=== PATIENT | male | born 1950 | race Caucasian/White ===

== ENCOUNTER → 2025-08-01 12:43 | Outpatient (CLI) | payer MEDICARE, OTHER, SELFPAY ==
--- NOTE | 2025-08-01 12:48 | EKG_ITS ---
[facility] [address] [address] Test Date: 2025-08-01 Pat Name: Gael Nieves Department: [facility] Room: Gender: Male Applications Intern: : 1950 Requested By: Order Number: [id number] Reading MD: Dez Whitaker Measurements Intervals [place] Rate: 53 P: 42 NM: 174 QRS: 20 QRSD: 102 T: 45 QT: 426 QTc: 399 Interpretive Statements Sinus bradycardia Electronically Signed On 08-05-2025 16:23:01 PDT by Dez Whitaker
[2025-08-01 13:58] LABS: Add Manual Diff / Slide Review NO; Hematocrit 43.6 % (41-53); Hemoglobin 14.7 g/dL (13.5-17.5); Lymphocytes Absolute Auto 2000 /uL (1100-4500); Mean Corpuscular HGB Conc 33.6 % (30-36); Mean Corpuscular Hemoglobin 32.0 PG (26-34); Mean Corpuscular Volume 95.1 fL (80-100); Platelet Count 298 X10^3/uL (150-400)
[2025-08-01 14:06] LABS: Hemoglobin A1C% w Est Avg Glu 5.9 % (4.0-6.0)
[2025-08-01 14:27] LABS: Albumin 4.6 g/dL (3.5-5.0); Blood Urea Nitrogen 21 mg/dL (9-20); Calcium 9.6 mg/dL (8.4-10.2); Carbon Dioxide 26 mmol/L (22-32); Chloride 103 mmol/L (98-107); Estimated Glomerular Filt Rate > 60 mL/min (>60); Glucose 107 mg/dL (70-99); HEMOLYSIS < 15 (0-50); Potassium 4.9 mmol/L (3.4-5.1); Sodium 140 mmol/L (137-145)
[2025-08-01 14:35] LABS: Prealbumin 35.9 mg/dL (17.6-36.0)
[2025-08-01 16:19] LABS: Vitamin D 25 Hydroxy (D3) 30.8 ng/mL (30.0-100.0)
== END ==
PROVIDERS: PCP Family Medicine; Referring Provider Orthopaedic Surgery Adult Reconstructive Orthopaedic Surgery; Visit Provider Orthopaedic Surgery Adult Reconstructive Orthopaedic Surgery
DX: Z01.818 Encounter for other preprocedural examination (principal); E55.9 Vitamin D deficiency, unspecified; R73.09 Other abnormal glucose
CPT/HCPCS: 36415; 80048; 82040; 82306; 83036; 84134; 85025; 93005

== ENCOUNTER 2025-11-14 08:00 | Inpatient (IN) | payer MEDICARE, OTHER, SELFPAY ==
[2025-11-06 08:37] VITALS: BMI 29.5
--- NOTE | 2025-11-14 | DI.CT.S_ITS ---
PROCEDURE: CT ANGIO CHEST PE PROTOCOL INDICATIONS: CODE IN OR TECHNIQUE: After the administration of intravenous contrast, 2 mm thick sections acquired from the pulmonary apices to the posterior costophrenic angles. 3-dimensional maximum intensity projection (MIP) coronal and sagittal reformats were then acquired through the thorax. For radiation dose reduction, the following was used: automated exposure control, adjustment of mA and/or kV according to patient size. COMPARISON: None. FINDINGS: Quality: Diagnostic. Vasculature: Aorta: No aneurysm. Pulmonary arteries: Occlusive thrombus to the right lower lobe posterior segment. Lungs: Parenchyma: Extensive centrilobular emphysematous change. Compressive atelectasis in the bilateral lower lobes. Airways: Endotracheal tube in the trachea. Focal mucous nonocclusive in the right mainstem bronchus. Pleura: No pneumothorax. No pleural effusion. Mediastinum: Thyroid: Unremarkable. Esophagus: Unremarkable. Heart: Bowing of the intraventricular septum and increased RV LV ratio. Reflux of contrast into the hepatic veins. Air is also present right atrium. Air within the right internal mammary and right IJ. Moderate coronary calcification Lymph nodes: No adenopathy. Other: Chest wall: Unremarkable. Upper abdomen: Indeterminate hypoattenuating liver lesions.. Bones: No aggressive osseous lesion. Nondisplaced fractures of the right to 3 full or 5 ribs and the left [id number] ribs. IMPRESSION: Occlusive pulmonary embolism to the right lower lobe posterior segment. Right heart strain. Small volume of air within the right atrium and right internal jugular vein. Most likely etiology during injection. Nonocclusive mucous within the airways. Compressive atelectasis. Bilateral anterior rib fractures. Indeterminate liver lesions. Further evaluation with MRI in the nonacute setting recommended. Dictated by: Jake Escamilla M.D. on 11/14/2025 at 13:22 Approved by: Jake Escamilla M.D. on 11/14/2025 at 13:39
--- OUTSIDE RECORDS SUMMARY | 2025-11-14 08:04 | XMS_ITS | Encounter Summary ---
Author Organization [facility] Address [address] [place] [id number] Care Team Providers Care Assistant Press Operator Offset Name Role Phone Belinda Maldonado MD Primary Care Provider [phone] Roger Meléndez MD Primary Care Provider [phone] Encounter Details Date Type Department Care Team (Late st Contact Info) Description 09/15/2023 Documentation [facility] Scanned, Document Social History Tobacco Use Types Packs/Day Years Used Date Smoking Tobacco: Never Assessed Sex and Gender Information Value Date Recorded Sex Assigned at Male 05/04/2024 12:28 PM PDT Legal Sex Male 11:49 AM PST Gender Identity Male 05/04/2024 12:28 PM PDT Sexual Orientation Straight 05/04/2024 12 :28 PM PDT documented as of this encounter Plan of Treatment Upcoming Encounters Date Type Department Care Team (Late st Contact Info) Description 12/12/2025 11:40 AM PST Follow-Up CARDIOLOGY - [place], [place] - [facility] [address] [id number] German Moore MD [address] [place] [phone] documented as of this encounter Visit Diagnoses Not on filedocumented in this encounter Care Teams Assistant Press Operator Offset Relationship Specialty Start Date End Date Belinda Maldonado MD PCP - General Family Medicine 05/08/16 05/13/24 Roger Meléndez MD [address] [address] PCP - General Family Medicine 05/14/24 documented as of this encounter
[2025-11-14] MEDS: LACTATED RINGERS 1,000 ML 42 ML IV (08:24)
[2025-11-14] MEDS: MELOXICAM 7.5 MG TABLET 15 MG PO (08:26)
[2025-11-14] MEDS: GABAPENTIN 300 MG CAPSULE PO (08:27)
[2025-11-14] MEDS: ACETAMINOPHEN 325 MG TABLET 975 MG PO (08:27)
[2025-11-14 08:59] VITALS: BP 130/80; PULSE 68; RESP 16; TEMP 36.2; O2SAT 97
--- NOTE | 2025-11-14 09:50 | PM.PREOP ---
Pre-operative Note Interval Note History & Physical reviewed/Exam performed by Physician: Yes Changes to H&P: No
--- NOTE | 2025-11-14 11:22 | SUR.OPER ---
Supine on padded [place] table with bilateral legs secured in padded positioning boots and suspended in positioning spars, operative leg in traction per surgeon. Head on one pillow. bilateral Arm secured on padded armboard <90 degrees abduction. Padded perineal post in place per surgeon.
[2025-11-14] MEDS: KETOROLAC 30 MG/ML VIAL 15 MG INJ (11:39)
--- NOTE | 2025-11-14 12:46 | DI.RAD.S_ITS ---
PROCEDURE: XR CHEST 1V INDICATIONS: CODE BLUE TECHNIQUE: One view of the chest was acquired. COMPARISON: [facility], CT, CT ANGIO CHEST PE PROTOCOL, 11/14/2025, 12:48. FINDINGS: Shallow inspiration. Bibasilar atelectasis. Upper lobe consolidation. No pneumothorax. Endotracheal tube approximately 3 cm from the bart. Cardiac silhouette partially visible. Possible left 5 in 6 anterior rib fractures. IMPRESSION: Consolidation concerning for pulmonary edema or pneumonia. Possible rib fractures. Dictated by: Jake Escamilla M.D. on 11/14/2025 at 13:03 Approved by: Jake Escamilla M.D. on 11/14/2025 at 13:05
[2025-11-14 13:01] LABS: Hematocrit 25.1 % (41-53); Hemoglobin 8.6 g/dL (13.5-17.5); Mean Corpuscular HGB Conc 34.2 % (30-36); Mean Corpuscular Hemoglobin 33.3 PG (26-34); Mean Corpuscular Volume 97.4 fL (80-100)
[2025-11-14 13:02] LABS: Add Manual Diff / Slide Review YES
--- NOTE | 2025-11-14 13:08 | EKG_ITS ---
[address] [address] Test Date: 2025-11-14 Pat Name: Gael Nieves Department: Room: E Gender: Male Flight Surveyor: : 1950 Requested By: Order Number: [id number] Reading MD: Measurements Intervals [place] Rate: 56 P: -88 HI: 168 QRS: 74 QRSD: 150 T: 0 QT: 380 QTc: 366 Interpretive Statements Unusual P axis, possible ectopic atrial bradycardia with undetermined rhythm irregularity Right bundle branch block
[2025-11-14 13:21] LABS: Allen Test for ABG Passed? Positive; Blood Gas Collection Site Left Radial; HCO3 ABG 20 mmol/L (23-27); Oxygen Saturation ABG 77 % (95-100); PCO2 ABG 60.1 mmHg (35-45); PO2 ABG 56 mmHg (80-100); TCO2 ABG 19 mmol/L (23-27)
[2025-11-14 13:23] LABS: Band Neutrophils Percent 2.0 % (3-7); Eosinophils Percent Manual 1.0 % (2-4); Lymphocytes Percent Manual 48.0 % (25-45); Monocytes Percent Manual 1.0 % (2-11); Myelocytes Percent 2.0 % (-0); Neutrophils Absolute Manual 4416 /uL (3000-5900); RBC Morphology Normal Morphology; Segmented Neutrophils Percent 46.0 % (38-70); Total Cells Counted 100
--- NOTE | 2025-11-14 14:02 | RT ---
Responded to a code blue to the OR. Upon arrival patient was receiving CPR and was intubated. After several rounds of CPR patient was transferred to get a CT secondary for possible PE. Patient was transferred on 15lpm BVM by SILK EXAMINER. After CT pt received an EKG and by RT and ABG was done by anesthesia on R femoral artery. ABG showed that the patient was very acidotick with a ph of 7.11. and daughter arrived in CT and made the decision to stop life saving procedures after MD thoroughly laid out what the situation was. Patient was extubated and a 3L oxymask was put on.
--- NOTE | 2025-11-14 14:19 | PM.OP.1 ---
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 He saw me in clinic for ongoing right hip pain and we discussed conversion to a total hip arthroplasty. Prior to proceeding with surgery he received both cardiac and primary care clearance. His cardiac clearance noted his history of cardiovascular disease but felt that he was low risk and his primary care clearance also commented on his cardiac history but felt that it should not impact any surgical plans. This patient was seen preoperatively and evaluated for hip pain which was refractory to numerous nonoperative treatment modalities. Their hip pain correlated with radiographic changes demonstrating significant degeneration in the hip joint. The risks and benefits of continued nonoperative management versus operative management were discussed at length and all of the patient?s questions were answered. Additional educational materials providing further details beyond our discussion in clinic were provided via a publicly available patient education video which included the incidence of medical complications associated with total hip arthroplasty, reasons for revision following total hip arthroplasty, and patient satisfaction rates following total hip arthroplasty. With this understanding of the risks inherent to the procedure, the patient elected to move forward with operative management. Following preoperative optimization, the patient was scheduled for surgery. The patient was met in the preoperative holding area the day of the procedure and all questions were answered. The patient?s nares were swabbed in order to decolonize them from MRSA. Informed consent was signed and the right limb was marked with indelible ink.? The patient was brought back to the operating room where anesthesia was induced. The patient was transferred to the [place] table and all bony prominences were padded. The operative site was prepped and draped in the usual sterile fashion. Prior to incision, tranexamic acid and cefazolin were administered. Operative templating images were displayed demonstrating the anticipated implant sizes and correct operative extremity. A timeout procedure was performed verifying the patient?s identity, medical comorbidities, allergies, relevant medications, anesthesia type and the surgical plan. All present were in agreement. The assistance of a physician information services assistant was required for positioning, room setup, soft tissue retraction and wound closure. Without this assistance, the procedure would have been significantly more challenging and time consuming.?? I initially made an approach down to the old DHS plate. I utilized the prior incision and excised the old scar and then dissected through the IT band and retracted the vastus lateralis anteriorly. I identified the plate and removed all of the distal screws. The most distal screw broke during removal with the head coming disconnected from the screw shaft. I removed the plate by sliding a Bruce underneath the plate after burring some of the overgrown bone around the chamber proximally where the proximal blade screw went through. The plate was removed over the proximal bolt and the proximal bolt was then removed. This exposed the most distal screw which had broken. I trephined over it and then removed the remainder of the screw using a broken screw removal tool. The very tip of the screw remained in place but I felt that this would not impact later broaching so I did not make further attempts to retrieve it A direct anterior approach to the hip was utilized. This was performed with a longitudinal incision through a Heuter interval. The incision was planned 2 cm distal and 2 cm lateral to the ASIS extending towards the lateral patella, in line with the muscle body of the TFL. Following incision, the subcutaneous tissue was dissected while taking care to avoid injury to the lateral femoral cutaneous nerve. The fascia overlying the TFL was identified by dissecting off the overlying fat and identifying perforating vessels to the TFL. The TFL fascia was incised and dissected away from the medial border of the TFL. A retractor was placed over the superior femoral neck between the abductors and the hip capsule and used to reflect the TFL laterally. A Barrow self-retainer was then placed in the distal aspect of the wound between the TFL and the rectus femoris. This was tensioned to open up the direct anterior interval and the lateral circumflex vessels were identified and coagulated using electrocautery. The floor of the TFL fascia was incised, exposing the pericapsular fat overlying the hip capsule. A second cobra retractor was placed on the inferior femoral neck. A retractor was placed on the anterior wall of the acetabulum and used to tension the reflected head of rectus femoris, which was then released in order to limit soft tissue tension. A capsulotomy was made in the midline of the anterior hip capsule in line with the femoral neck ending at the vastus tubercle. The anterior retractor was removed as soon as the capsulotomy was completed in order to limit the amount of time that a soft tissue retractor remained on the anterior wall and limit tension on the femoral nerve. Tag stitches were placed in the superior and inferior leaflets of the hip capsule. An Bobby soft tissue retractor was introduced over the tag stitches and tensioned in the interval between the rectus femoris and the TFL in order to retract and protect those muscles. The cobra retractors were replaced intracapsularly, with one over the superior neck in the pocket created by the base of the greater trochanter and the other on the femoral head. The capsulotomy was extended laterally to the base of the greater trochanter and medially to the lesser trochanter. This required externally rotating the hip. Once the lesser trochanter had been identified, a neck cut was planned according to measurements from preoperative templating. A ruler was cut at the length measured between the superior aspect of the lesser trochanter and the collar of the prosthesis. This line was extended towards the inferior aspect of the lateral cobra retractor to plan a cut which would leave minimal residual femoral neck laterally. The neck was cut at 60 degrees of external rotation along that line. A second cut was performed to remove a large napkin ring and facilitate head extraction. The napkin ring cut and femoral head were removed.?? A broad anterior wall retractor was placed between the labrum and the anterior capsule so that the anterior capsule would prevent capturing and pinching the femoral nerve anteriorly. An additional retractor was placed on the posterior wall. External rotation and traction were applied through the [place] table so that the cut surface of the femoral neck would not restrict access to the acetabulum. The labrum was excised sharply and the pulvinar was excised with electrocautery to limit bleeding from branches of the obturator artery. Acetabular reamers were selected based on preoperative templating and measurements of the excised femoral head. These were introduced into the acetabulum. Fluoroscopy was utilized to replicate a standing AP pelvis radiograph by centering over the pelvis, rotating until there was appropriate symmetry between the obturator foramen, and introducing caudal tilt to match the position of the pubic symphysis relative to the sacrococcygeal junction according to the patient?s anatomy. Once satisfied with the reaming depth corresponding to the preoperative template and the pinch fit between the columns, an appropriate sized acetabular cup was selected which would provide 1 mm of press-fit. This cup was introduced and manipulated until appropriate abduction and anteversion angles were obtained with careful attention to appropriate abduction and anteversion angles as evaluated by the position of the cup relative to the anterior and posterior escobar of the acetabulum and the AP fluoroscopy which recreated the patient?s standing radiograph. The cup was impacted into place. Peripheral osteophytes were removed. The acetabular liner was then placed with care to ensure locking of the locking mechanism. It was at this point in time that the anesthesia team alerted me to the patient's decompensation. I whip stitched the wound closed with a nylon suture. I applied a bandage. Resuscitation efforts began simultaneously with this expedited closure. The resuscitation efforts, eventual code, and subsequent of the patient are documented elsewhere in the chart from the other team members who were involved in managing the code. During this process I communicated multiple times with the family regarding updates, brought them to the bedside in the CT scanner where he passed and have stayed with them as they begin the grieving process. Complications: other () Post-operative Condition:
--- NOTE | 2025-11-14 14:21 | SUR.OPER ---
code blue was called at approximately 1203 incision was closed at approximately 1207 for end of case. See code documentation for information on code. See out of room time for time to transport to CT.
--- NOTE | 2025-11-14 14:26 | P.CONS_ITS ---
History of Present Illness Consult details Date Patient Seen: 11/14/25 Chief complaint: INPTRight conversion of prior surgery to Total Hip Narrative: This is a 75-year-old male with a history of CAD, GERD, COPD, hypertension, hyperlipidemia, atrial fibrillation and normocytic anemia who experienced a cardiac arrest during right hip replacement revision surgery. Orthopedic surgery and anesthesia requested hospitalist consultation. His preoperative clearance letter is reviewed. His cardiac evaluation mentioned 1 of the smaller arteries having significant stenosis but no further intervention or treatment was recommended. He had no history of DVT or PE. His surgery today was a planned elective cemented right total hip arthroplasty with removal of prior dynamic hip screw. At between 1 and 2 hours into surgery, at a point somewhat past the planned mid point of the surgery he went into cardiac arrest. Ultimately at the end of an hour plus long team resuscitation effort a CT scan documented a right lower lung pulmonary embolus as the likely cause of the initially noted dropping end-tidal CO2 and the subsequent cardiac arrest. See the very careful documentation of the code sequence by anesthesia. In the OR the patient received IV amiodarone, several doses of IV epinephrine, several rounds of CPR, bedside ultrasound of the lungs and heart looking for pneumothorax/cardiac motion. Chest x-ray documenting no pneumothorax was also done. Close coordination and consultation with the ED physician, the anesthesia physician and nurse senior project accountant and the orthopedic surgeon. EKG showed junctional rhythm without acute ST or T-wave changes. CPR was high quality and together with epinephrine brought return of spontaneous circulation several times before deteriorating back into bradycardia and pulseless electrical activity. Once the patient was initially stabilized he was taken to the CT scanner where the PE diagnosis was ultimately made. He went back into cardiac arrest and became epinephrine dependent, dropping back into pulseless electrical activity repeatedly, eventually needing frequent IV epinephrine and atropine to avoid return to bradycardia/PE. He was closely attended by respiratory therapy, pharmacy, MACHINE FEEDER and OR MD/MOVIE OPERATOR staff at all times. An ABG was done documenting a pH of 7.11. Family were invited into the room to observe the progression of the code and after discussion of potential outcomes including severe rib fracture pain, diminished mental capabilities and likely severe physical debility even if ongoing efforts were successful, his and his daughter agreed that he would not have wanted the outcome that was now most likely evident based on the acidosis and continued struggled to maintain spontaneous circulation. He was made comfort care and resuscitative efforts were stopped at their request. Radiology described a right lower lung pulmonary embolus with air in the right atrium (likely related to multiple resuscitative medication injections etc.) on his CTA. Exam: Patient was examined multiple times during the resuscitation effort by myself and other medical attending staff. Assessment and plan: Intraoperative cardiac arrest secondary to spontaneous right lower lobe pulmonary embolism. Extensive efforts at resuscitation with several episodes of return to spontaneous circulation and then return back to pulseless electrical activity. Anticoagulation and clot lysis were considered with relative contraindications of very recent surgery and likely blood loss in the operative site if that were done. Ultimately with the acidosis present and the repeated arrests family opted to honor his wishes of not prolonging his life without the quality of live that he wished to have. This prevented what would have been a very hard decision of clot lysis/anticoagulation in the context of expected operative site bleeding. Meds Home Medications and Allergies Home Medications ?Medication ?Instructions ?Recorded ?Confirmed ?Type rosuvastatin 10 mg tablet 10 mg PO DAILY 08/01/2510/28 History cholecalciferol (vitamin D3) 50 100 mcg (2 x 50 mcg (2 ,000 unit)) 08/02/25 11/14/25 Rx mcg (2,000 unit) capsule PO DAILY low vitamin d #60 c aps chlorhexidine gluconate 4 % 1 applic topical DAILY 5 d oses 10/30/25 11/06/25 Rx topical liquid (Hibiclens) #473 mL docusate sodium 100 mg capsule 100 mg PO BID constipat ion #14 caps 10/30/25 11/06/25 Rx (Colace) meloxicam 15 mg tablet 15 mg PO DAILY PRN pain #30 tabs 10/30/25 11/14/25 Rx metoprolol succinate 25 mg 12.5 mg PO DAILY 10/30/25 1 01/15/25 History tablet,extended release 24 hr naproxen 500 mg tablet 220 mg PO BID PRN Pain 10/3011/14/25 History Held on 10/30/25. Instructions: Pre-surgery ondansetron 4 mg disintegrating 4 mg PO Q8H PRN nausea and 10/30/25 11/06/25 Rx tablet vomiting #12 tabs pantoprazole 40 mg tablet,delayed 40 mg PO DAILY #30 t abs 10/30/25 11/14/25 Rx release Held on 11/14/25. Instructions: for after surgery cefadroxil 500 mg capsule 500 mg PO BID 11/06/2511/14 History Held on 11/14/25. Instructions: not taking yet oxycodone 5 mg tablet 5 mg PO Q6H PRN pain #30 tab s 11/06/25 11/14/25 Rx Held on 11/14/25. Instructions: for post surgery aspirin 81 mg tablet 81 mg PO DAILY 11/14/2510/28 History Allergies Allergy/AdvReac Type Severity Reaction Status Date / Time No Known Drug Allergies Allergy Verified 11/14/25 08:51 Exam Vital Signs (past 8 hours): - 11/14/25 08:59 Temperature 97.2 F L Pulse Rate 68 Respiratory Rate 16 Blood Pressure 130/80 Pulse Oximetry 97 Oxygen Delivery Method Room Air Oxygen Delivery Method Room Air Objective Labs 11/14/25 Unknown Labs: Laboratory Results - last 24 hr 11/14/25 11/14/25 11/14/25 08:45 10:51 12:26 WBC RBC Hgb Hct MCV MCH MCHC RDW Plt Count Neut % (Auto) Lymph % (Auto) [place] % (Auto) Eos % (Auto) Baso % (Auto) Lymph # (Auto) [place] # (Auto) Baso # (Auto) Total Counted Seg Neutrophils % Band Neutrophils % Lymphocytes % (Manual) Atypical Lymphs % Monocytes % (Manual) Eosinophils % (Manual) Basophils % (Manual) Metamyelocytes % Myelocytes % Promyelocytes % Blast Cells % Neutrophils # (Manual) Nucleated RBCs Differential Comment Hypersegmented Neuts Reactive Lymphocytes Plasma Cells Smudge Cells Other Cell Type Toxic Granulation Toxic Vacuolation Dohle Bodies Raffy Rods WBC Morphology Comment Platelet Estimate Clumped Platelets Plt Morphology Comment RBC Morphology Dimorphic RBCs Polychromasia Hypochromasia Poikilocytosis Basophilic Stippling Anisocytosis Microcytosis Macrocytosis Spherocytes Pappenheimer Bodies Sickle Cells Target Cells Tear Drop Cells Ovalocytes Stomatocytes Helmet Cells [place] Bodies [place] Rings [place] Cells Acanthocytes (Spur) Rouleaux Schistocytes ABG Sample Site ABG pH ABG pCO2 ABG pO2 ABG HCO3 ABG Total CO2 ABG O2 Saturation ABG Base Excess Dez Test Sodium Potassium Chloride Carbon Dioxide BUN Creatinine Estimated GFR BUN/Creatinine Ratio Glucose POC Whole Bld Glucose 98 149 H Calcium Total Bilirubin AST ALT Alkaline Phosphatase Troponin I Total Protein Albumin Globulin Albumin/Globulin Ratio Blood Type B Negative Antibody Screen Negative 11/14/25 11/14/25 13:17 Unknown WBC 9.2 RBC 2.58 L Hgb 8.6 L Hct 25.1 L MCV 97.4 MCH 33.3 MCHC 34.2 RDW 13.2 Plt Count TNP Neut % (Auto) Not Reportable Lymph % (Auto) Not Reportable [place] % (Auto) Not Reportable Eos % (Auto) Not Reportable Baso % (Auto) Not Reportable Lymph # (Auto) Not Reportable [place] # (Auto) Not Reportable Baso # (Auto) Not Reportable Total Counted 100 Seg Neutrophils % 46.0 Band Neutrophils % 2.0 L Lymphocytes % (Manual) 48.0 H Atypical Lymphs % Cancelled Monocytes % (Manual) 1.0 L Eosinophils % (Manual) 1.0 L Basophils % (Manual) Cancelled Metamyelocytes % Cancelled Myelocytes % 2.0 H Promyelocytes % Cancelled Blast Cells % Cancelled Neutrophils # (Manual) 4416 Nucleated RBCs Cancelled Differential Comment Cancelled Hypersegmented Neuts Cancelled Reactive Lymphocytes Cancelled Plasma Cells Cancelled Smudge Cells Cancelled Other Cell Type Cancelled Toxic Granulation Cancelled Toxic Vacuolation Cancelled Dohle Bodies Cancelled Raffy Rods Cancelled WBC Morphology Comment Cancelled Platelet Estimate Cancelled Clumped Platelets Cancelled Plt Morphology Comment Cancelled RBC Morphology Normal morphology Dimorphic RBCs Cancelled Polychromasia Cancelled Hypochromasia Cancelled Poikilocytosis Cancelled Basophilic Stippling Cancelled Anisocytosis Cancelled Microcytosis Cancelled Macrocytosis Cancelled Spherocytes Cancelled Pappenheimer Bodies Cancelled Sickle Cells Cancelled Target Cells Cancelled Tear Drop Cells Cancelled Ovalocytes Cancelled Stomatocytes Cancelled Helmet Cells Cancelled [place] Bodies Cancelled [place] Rings Cancelled Sera Cells Cancelled Acanthocytes (Spur) Cancelled Rouleaux Cancelled Schistocytes Cancelled ABG Sample Site Left radial ABG pH 7.12 L* ABG pCO2 60.1 H ABG pO2 56 L ABG HCO3 20 L ABG Total CO2 19 L ABG O2 Saturation 77 L* ABG Base Excess -10.0 L Dez Test Positive Sodium Cancelled Potassium Cancelled Chloride Cancelled Carbon Dioxide Cancelled BUN Cancelled Creatinine Cancelled Estimated GFR Cancelled BUN/Creatinine Ratio Cancelled Glucose Cancelled POC Whole Bld Glucose Calcium Cancelled Total Bilirubin Cancelled AST Cancelled ALT Cancelled Alkaline Phosphatase Cancelled Troponin I Cancelled Total Protein Cancelled Albumin Cancelled Globulin Cancelled Albumin/Globulin Ratio Cancelled Blood Type Antibody Screen [facility] Medical History (Updated 11/06/25 @ 10:23 by Lili Day RN) GERD (gastroesophageal reflux disease) COPD (chronic obstructive pulmonary disease) SCC (squamous cell carcinoma), face Emphysema lung HLD (hyperlipidemia) HTN (hypertension) Orthostatic lightheadedness CAD (coronary artery disease) Normocytic anemia History of sepsis (04/2024) History of compression fracture of vertebral column History of atrial fibrillation (04/2024) Traumatic arthritis of right hip Surgical History (Updated 11/06/25 @ 09:38 by Lili Day RN) History of cardiac catheterization Hx of foot surgery Hx of hernia repair History of open reduction and internal fixation (ORIF) procedure (10/16/15) Tobacco & Substance Use Smoking Status: Former smoker Assessment & Plan Time-Based Coding :: [TOTAL MINUTES] spent with patient and on the chart (including review of chart, obtaining history, exam, reviewing outside data, placing orders, documenting exam and treatment plan, and counseling patient) on [DATE].
--- NOTE | 2025-11-14 15:24 | P.EN_ITS ---
Event Note Date Patient Seen: 11/14/25 Time Patient Seen: 11:53 Event Note (Rapid Response, Code, or fall): Below details intra operative event: * 1150: BP unable to cycle HR 58, SpO2 98%, EtCo to 29 (prior 35 at 1147). * 1151: Hr 57, EtCo2 23, SpO2 98% * 1152: Hr 52, EtCo2 19, SpO2 91% * 1153: Hr 53, Etco2 21, SpO2 89% - FiO2 increased to 100%, connections to ventilator assessed, tube assessed * 1154: ST elevation noted on EKG, BP 61/34, EtCo2 21, Spo2 88% - ventilator switched to manual mode and patient manually ventilated. no increased resistance noted, Vt remained approx 500mL. 10mg Ephedrine given * 1155: EtCo2 17, HR 55, SpO2 84% * 1157: EtCo2 10, HR 48, SpO2 78%, attempting to cycle BP, 5mg ephedrine given. Carotid pulse assessed and present. Patient remained in NSR on monitor. * 1158: Called for second anesthesia provider, Celina Mckeon CRNA. EtCo2 10, HR 53, SpO2 69% * 1200: Second anesthesia provider arrived. Ashen color noted, LR bag changed. Sevo off. Right carotid pulse rechecked and thready. Vaso 1unit given. Surgeon notified and asked surgeon for wound closure. 0.5mg EPI given. * 1201: called for additional anesthesia back up, additional OR personnel back up. * 1203: Code called - PEA arrest, remaining 0.5mg Epi given. Patient put back on VCV at 100% FiO2. CPR started. Vitals with compressions: BP 110/76 SpO2 88%, EtCo2 10. * 1204: Additional OR/anesthesia MD back up arrives. Code team. Designated 2 compressors, backboard placed and pacing pads placed on patient. * 1205: Official code blue flowsheet started x RN. Pulse check - no pulse noted and CPR resumed. * 1207: Pulse check - PEA arrest. Compressions resumed. * 1210: pulse check: No pulse - PEA continued. Compression resumed. 1mg Epi given. * 1212: pulse check: thready carotid pulse noted. 2 units of vaso, 0.5 mg Epi. Unsuccessful PIV line placement attempt. Hr 179, SpO2 79%, EtCo2 23. * 1214: Bp 182/88 * 1215: Vtach noted on monitor - Resumed CPR. Norepi bag started, phenylephrine gtt DC'd. * 1216: Defibrilator charged, shock delivered @150 j. * 1217: CPR resumed. category consultant arrived, SBAR to category consultant and ER MD. * 1219: Rhythm check - sinus tachycardia with no ST elevation. 1 amp bicarb given. ROSC BP 123/53, SpO2 78%. HR 102, EtCo2 33. * 1222: Lost a pulse - 1 amp of Epi given - resumed CPR * 1223: 300mg amiodarone given * 1224: CPR paused for pulse check and rhythm assessment. beside cardiac ultrasound - regular ventricular activity present. * 1225: Bp 166/81 * 1226: blood glucose 149, NSR on EKG * 1228: femoral pulse continually being assessed by hospitalist. BP 115/78 HR 72 EtCo2 27 * 1229: attempting labs, attempting arterial line and PIV - 20g L forearm attained. 1L LR started on new IV. * 1230: 1000mg calcium chloride given. BP 122/74 HR 71 EtCo2 33, SpO2 90%. * 1231: Epi gtt started * 1233: blood sent to lab * 1235: Pulse lost, CPR restarted. * 1237: carotid and femoral pulse present. * 1238: NSR with PACs. * 1240: Chest xray obtained. and preparing patient for transport to CT. * 1247: Transport to CT. Emergent meds available for transport. patient on full transport monitors. BMV ventilation on 100%. * 1248:Hr 60, Spo2 92%, BP 92/53 - Epi and NE gtt continued. 1 unit vaso given prior to transport. * 1249: Out of OR to CT * In CT new code initiated. CT obtained after ROSC. Family invited to bedside with ultimate decision to pursue comfort measures.
--- NOTE | 2025-11-14 15:24 | PM.EVENT ---
Event Note Date Patient Seen: 11/14/25 Time Patient Seen: 11:53 Event Note (Rapid Response, Code, or fall): Below details intra operative event: 1150: BP unable to cycle HR 58, SpO2 98%, EtCo to 29 (prior 35 at 1147). 1151: Hr 57, EtCo2 23, SpO2 98% 1152: Hr 52, EtCo2 19, SpO2 91% 1153: Hr 53, Etco2 21, SpO2 89% - FiO2 increased to 100%, connections to ventilator assessed, tube assessed 1154: ST elevation noted on EKG, BP 61/34, EtCo2 21, Spo2 88% - ventilator switched to manual mode and patient manually ventilated. no increased resistance noted, Vt remained approx 500mL. 10mg Ephedrine given 1155: EtCo2 17, HR 55, SpO2 84% 1157: EtCo2 10, HR 48, SpO2 78%, attempting to cycle BP, 5mg ephedrine given. Carotid pulse assessed and present. Patient remained in NSR on monitor. 1158: Called for second anesthesia provider, Celina Mckeon CRNA. EtCo2 10, HR 53, SpO2 69% 1200: Second anesthesia provider arrived. Ashen color noted, LR bag changed. Sevo off. Right carotid pulse rechecked and thready. Vaso 1unit given. Surgeon notified and asked surgeon for wound closure. 0.5mg EPI given. 1201: called for additional anesthesia back up, additional OR personnel back up. 1203: Code called - PEA arrest, remaining 0.5mg Epi given. Patient put back on VCV at 100% FiO2. CPR started. Vitals with compressions: BP 110/76 SpO2 88%, EtCo2 10. 1204: Additional OR/anesthesia MD back up arrives. Code team. Designated 2 compressors, backboard placed and pacing pads placed on patient. 1205: Official code blue flowsheet started x RN. Pulse check - no pulse noted and CPR resumed. 1207: Pulse check - PEA arrest. Compressions resumed. 1210: pulse check: No pulse - PEA continued. Compression resumed. 1mg Epi given. 1212: pulse check: thready carotid pulse noted. 2 units of vaso, 0.5 mg Epi. Unsuccessful PIV line placement attempt. Hr 179, SpO2 79%, EtCo2 23. 1214: Bp 182/88 1215: Vtach noted on monitor - Resumed CPR. Norepi bag started, phenylephrine gtt DC'd. 1216: Defibrilator charged, shock delivered @150 j. 1217: CPR resumed. business planning director arrived, SBAR to business planning director and ER MD. 1219: Rhythm check - sinus tachycardia with no ST elevation. 1 amp bicarb given. ROSC BP 123/53, SpO2 78%. HR 102, EtCo2 33. 1222: Lost a pulse - 1 amp of Epi given - resumed CPR 1223: 300mg amiodarone given 1224: CPR paused for pulse check and rhythm assessment. beside cardiac ultrasound - regular ventricular activity present. 1225: Bp 166/81 1226: blood glucose 149, NSR on EKG 1228: femoral pulse continually being assessed by hospitalist. BP 115/78 HR 72 EtCo2 27 1229: attempting labs, attempting arterial line and PIV - 20g L forearm attained. 1L LR started on new IV. 1230: 1000mg calcium chloride given. BP 122/74 HR 71 EtCo2 33, SpO2 90%. 1231: Epi gtt started 1233: blood sent to lab 1235: Pulse lost, CPR restarted. 1237: carotid and femoral pulse present. 1238: NSR with PACs. 1240: Chest xray obtained. and preparing patient for transport to CT. 1247: Transport to CT. Emergent meds available for transport. patient on full transport monitors. BMV ventilation on 100%. 1248:Hr 60, Spo2 92%, BP 92/53 - Epi and NE gtt continued. 1 unit vaso given prior to transport. 1249: Out of OR to CT In CT new code initiated. CT obtained after ROSC. Family invited to bedside with ultimate decision to pursue comfort measures.
--- NOTE | 2025-11-14 16:31 | ED.CONSULT ---
ED Provider Consult/Code Note General Reason for Admission: INPTRight conversion of prior surgery to Total Hip Events leading to Consult/Code: I responded to intraoperative code blue. Patient was having a right hip replacement, suddenly lost pulses, he had a sudden decrease in CO2 and cardiac arrest. He has a history of coronary artery disease GERD COPD hypertension hyperlipidemia AFib. It appears that he did have a cardiac catheterization back in June which was fairly unremarkable. I was not there initially but it sounds like there was a ventricular rhythm which got 1 shock. He has been in PEA since. ALS protocol was followed to the best of our ability. Multiple doses of epinephrine amiodarone bicarb and calcium were given. Ultimately he did regain pulses and would lose them again at which point CPR was restarted. Considered pulmonary embolism however patient in the middle of OR thought thrombolytics would be contraindicated due to ongoing procedure. Intraoperative chest x-ray does not show any kind of pneumothorax. No further ventricular rhythms. He was ultimately stable for a CT scan, but then again lost pulses in the CT scanner, pulses regained. Bedside ultrasound in the CT scanner looking for cardiac activity which he did have. Ultimately care and code handed over to Dr. Block. No procedures were performed by me
== END 2025-11-14 13:36 | disposition expired | DRG 498 ==
LOC: AC 17:04 → OR 11-15 07:41 → AC 11-15 08:15
PROVIDERS: Admitting Provider Orthopaedic Surgery Adult Reconstructive Orthopaedic Surgery; PCP Family Medicine; Referring Provider Orthopaedic Surgery Adult Reconstructive Orthopaedic Surgery; Visit Provider Orthopaedic Surgery Adult Reconstructive Orthopaedic Surgery
PROC: 0QP604Z Removal of Internal Fixation Device from Right Upper Femur, Open Approach (ICD-10-PCS; principal; 2025-11-14 09:45)
DX: M16.51 Unilateral post-traumatic osteoarthritis, right hip (principal); E87.20 Acidosis, unspecified; I26.99 Other pulmonary embolism without acute cor pulmonale; I97.711 Intraoperative cardiac arrest during other surgery; I48.91 Unspecified atrial fibrillation; I25.10 Atherosclerotic heart disease of native coronary artery without angina pectoris; K21.9 Gastro-esophageal reflux disease without esophagitis; J44.9 Chronic obstructive pulmonary disease, unspecified; R73.03 Prediabetes; I10 Essential (primary) hypertension; Z51.5 Encounter for palliative care; Z98.890 Other specified postprocedural states; Z87.891 Personal history of nicotine dependence
CPT/HCPCS: 36600; 71045; 71275; 82805; 82962; 85007; 85025; 86850; 86900; 86901; 92950; 93005; C1776; C1713; J0165; J0282; J0461; J0689; J1100; J1171; J1885; J2704; J3010; J7060; J7120; Q9967